=== PATIENT | female | born 1970 | race Caucasian/White ===

== ENCOUNTER 2018-11-07 18:32 | Emergency (ER) | payer MEDICAID ==
[~2018-11-07] VITALS: Ht 165.1 cm; Wt 66.0 kg
[2018-11-07 19:02] VITALS: BP 179/118
== END 2018-11-08 05:37 | disposition left against medical advice (07) ==
LOC: ER 18:32
DX: R05 Cough (principal); R07.9 Chest pain, unspecified; I10 Essential (primary) hypertension; Z88.0 Allergy status to penicillin
CPT/HCPCS: 81025; 99282